=== PATIENT | male | born 1975 | race African-American/Black ===

== ENCOUNTER 2018-04-24 17:49 | Emergency (ER) | payer SELFPAY ==
[~2018-04-24] VITALS: Ht 177.8 cm; Wt 59.0 kg
--- NOTE | 2018-04-24 19:00 | NUR ---
BIB RA 86 GLF + ETOH, LAC ON LT EYE BROW-UNK KO, AMB ON SEEN PER EMS, BS REPORTED 100, VS OBTAINED STABLE, PLACED ON ER BED 6, AWAITING TO BE EVAL BY ER MD.
--- NOTE | 2018-04-24 19:10 | NUR ---
CL FOR POTASSIUM REPORTED 2.7 MD MADE AWARE, AWAITING ORDERS.
[2018-04-24 19:19] LABS: BASOPHILS # (AUTO) 0.2 /CMM (0.0-0.2); EOSINOPHILS % (AUTO) 1.5 % (0.0-6.0); HEMATOCRIT 46 % (39-51); HEMOGLOBIN 15.6 g/dL (13.5-17.5); LYMPHOCYTES # (AUTO) 2.9 /CMM (0.8-4.8); LYMPHOCYTES % (AUTO) 36.6 % (20.0-44.0); MEAN CORPUSCULAR HGB CONC 34 g/dl (31.0-36.0); MEAN CORPUSCULAR VOLUME 95 fL (80-96); MONOCYTES # (AUTO) 0.6 /CMM (0.1-1.30); MONOCYTES % (AUTO) 8.1 % (2.0-12.0); NEUTROPHILS # (AUTO) 4.1 /CMM (1.8-8.9); NEUTROPHILS % (AUTO) 51.8 % (43.0-81.0); PLATELET COUNT (AUTO) 307 /CMM (150-450); WHITE BLOOD COUNT (AUTO) 7.9 K/uL (4.3-11.0)
[2018-04-24 19:29] LABS: ALANINE AMINOTRANSFERASE 136 U/L (12-78); ALBUMIN 3.9 g/dL (3.4-5.0); ALCOHOL, BLOOD 393 mg/dL (0-0); ALKALINE PHOSPHATASE 125 U/L (46-116); ASPARTATE AMINOTRANSFERASE 222 U/L (15-37); BILIRUBIN,DIRECT 0.2 mg/dL (0.0-0.2); BILIRUBIN,TOTAL 0.4 mg/dL (0.2-1.0); CALCIUM, SERUM 9.2 mg/dL (8.5-10.1); CARBON DIOXIDE 30 mmol/L (21-32); CHLORIDE 102 mmol/L (98-107); CREATININE 0.6 mg/dL (0.6-1.3); GLUCOSE 78 mg/dL (74-106); SODIUM SERUM 142 mmol/L (136-145); TOTAL PROTEIN, SERUM 8.1 g/dL (6.4-8.2); UREA NITROGEN, BLOOD 8 mg/dL (7-18)
[2018-04-24 19:32] LABS: ACETAMINOPHEN < 2 ug/ml (10-30); POTASSIUM 2.7 mmol/L (3.5-5.1); SALICYLATE 2.6 mg/dL (2.8-20.0)
--- NOTE | 2018-04-24 19:32 | NUR ---
XR RAY DONE, AWAITINGNON RESULTS.
[2018-04-24] MEDS ORDERED: POTASSIUM CHLORIDE 20 MEQ TAB.PRT.SR PO ONE ×2 (19:59→20:00)
[2018-04-24] MEDS: POTASSIUM CL. PREMIX PERIPHER. 50 ML IV SCH ×4 (20:00→23:00)
[2018-04-24] MEDS ORDERED: IV NS 0.9% 1,000 ML BAG IV ONE (20:00)
--- NOTE | 2018-04-24 20:00 | NUR ---
ORDER TO REPLACE POTASSIUM WITH 10 MEQ IV FOR TOTAL OF 200 ML.
--- NOTE | 2018-04-24 20:12 | NUR ---
CT READ BY ER MD BAH NEGATIVE, PT INFORMED OF RESULT, MD, NO NEED FOR CERVICAL NECK BRACE .
--- NOTE | 2018-04-24 20:12 | NUR ---
PT TAKEN TO CT, VS STABLE.
[2018-04-24] MEDS ORDERED: POTASSIUM CL. PREMIX PERIPHER. 50 ML ONE ×2 (20:15→21:10)
--- NOTE | 2018-04-24 21:00 | NUR ---
PT RESTING IN BED, VS STABLE, ALL NEEDS ATTENDED, FED, WITH NOURISHMENT.
[2018-04-24] MEDS ORDERED: POTASSIUM CL. PREMIX PERIPHER. 100 ML ONE (22:06)
--- NOTE | 2018-04-24 22:51 | NUR ---
PT CONT' ON POTASSIUM SUPPLIMENT IV AT THIS TIME WELL TOLERATED.
[2018-04-24] MEDS ORDERED: IV NS 0.9% 500 ML BAG IV ONE (23:30)
[2018-04-24] MEDS ORDERED: IV NS 0.9% 250 ML BAG IV ONE (23:30)
--- NOTE | 2018-04-25 00:30 | NUR ---
pt cont' kcl, iv infusing, well tolerated, vs stable.
--- NOTE | 2018-04-25 01:11 | NUR ---
Patient discharged to home in stable condition, placement social centers information provided, food and drinks given, told to wait in waiting room for transport. Written and verbal after care instructions given. Patient verbalizes understanding of instruction.
[2018-04-25 01:15] VITALS: BP 139/86
== END 2018-04-25 01:19 | disposition home or self-care (01) ==
LOC: ER 17:54
DX: S01.112A Laceration without foreign body of left eyelid and periocular area, initial encounter (principal); F10.129 Alcohol abuse with intoxication, unspecified; E87.6 Hypokalemia; R41.82 Altered mental status, unspecified; I10 Essential (primary) hypertension; J45.909 Unspecified asthma, uncomplicated; Z59.0 Homelessness; X58.XXXA Exposure to other specified factors, initial encounter; Y93.89 Activity, other specified; Y92.89 Other specified places as the place of occurrence of the external cause; Y99.8 Other external cause status
CPT/HCPCS: 12013; 36415; 70450; 71045; 72125; 80048; 80076; 80307; 80329; 85025; 93005; 96365; 99284; A4606; G0480; J3480 ×3; J7030; J7050 ×2

== ENCOUNTER 2018-05-19 07:45 | Emergency (ER) | payer OTHER ==
[~2018-05-19] VITALS: Ht 177.8 cm; Wt 76.2 kg
[2018-05-19] MEDS ORDERED: LORAZEPAM 1 MG TABLET PO ONE (08:00)
[2018-05-19] MEDS ORDERED: IV NS 0.9% 1,000 ML BAG IV ONE (08:00)
[2018-05-19] MEDS ORDERED: LORAZEPAM 1 MG TABLET ONE (08:14)
[2018-05-19 08:29] LABS: CALCIUM, SERUM 9.7 mg/dL (8.5-10.1); CARBON DIOXIDE 21 mmol/L (21-32); CHLORIDE 98 mmol/L (98-107); CREATININE 0.9 mg/dL (0.6-1.3); GLUCOSE 110 mg/dL (74-106); POTASSIUM 3.6 mmol/L (3.5-5.1); SODIUM SERUM 139 mmol/L (136-145); UREA NITROGEN, BLOOD 13 mg/dL (7-18)
[2018-05-19 08:35] LABS: ALANINE AMINOTRANSFERASE 133 U/L (12-78); ALBUMIN 3.9 g/dL (3.4-5.0); ALCOHOL, BLOOD < 3 mg/dL (0-0); ALKALINE PHOSPHATASE 122 U/L (46-116); ASPARTATE AMINOTRANSFERASE 229 U/L (15-37); BASOPHILS % (AUTO) 0.7 % (0.0-2.0); BILIRUBIN,DIRECT 0.4 mg/dL (0.0-0.2); BILIRUBIN,TOTAL 1.2 mg/dL (0.2-1.0); EOSINOPHILS % (AUTO) 0.6 % (0.0-6.0); HEMATOCRIT 41 % (39-51); HEMOGLOBIN 13.5 g/dL (13.5-17.5); LYMPHOCYTES # (AUTO) 0.6 /CMM (0.8-4.8); LYMPHOCYTES % (AUTO) 11.1 % (20.0-44.0); MEAN CORPUSCULAR HGB CONC 33 g/dl (31.0-36.0); MEAN CORPUSCULAR VOLUME 94 fL (80-96); MONOCYTES # (AUTO) 0.3 /CMM (0.1-1.30); MONOCYTES % (AUTO) 5.7 % (2.0-12.0); NEUTROPHILS # (AUTO) 4.6 /CMM (1.8-8.9); NEUTROPHILS % (AUTO) 81.9 % (43.0-81.0); PLATELET COUNT (AUTO) 110 /CMM (150-450); RED BLOOD CELL COUNT(AUTO) 4.31 MIL/uL (4.5-6.0); TOTAL PROTEIN, SERUM 7.8 g/dL (6.4-8.2); WHITE BLOOD COUNT (AUTO) 5.7 K/uL (4.3-11.0)
--- NOTE | 2018-05-19 08:59 | NUR ---
patient presented to the ER [facility] from [facility] post ictal seizure. On room air, breathing evenly and unlabored. Connected to the monitor and pulse ox. Kept comfortable. Will continue to monitor accordingly. Denies any pain at this time.
--- NOTE | 2018-05-19 09:59 | NUR ---
ALICIA CALLED FOR HOMELESS RESOURCES
--- NOTE | 2018-05-19 10:00 | NUR ---
ANA MARÍA received a call from DAHLIA Diane from ED requesting for consult for homelessness. Pt. is a 42 year old male who was brought in by rescue ambulance from the [facility] for having a seizure. ANA MARÍA met with pt. bedside. Pt. is alert and oriented x 4. Pt. appears disheveled. Pt. states he has been homeless for a year. Pt. had a job and an apartment a year ago. Pt. lost his job and couldn't afford to pay his rent. Pt. drinks 2 bottles of vodka per day. Pt. states he was drinking beer but as of recent he has been drinking vodka. Pt. states he drinks whenever he has some money. Pt. receives [employer] and food stamps monthly. ANA MARÍA encouraged pt. to attend an alcohol treatment program, however pt. declined. Pt. states he did attend an alcohol treatment program at [facility] in [place] years ago. ANA MARÍA offered pt. [facility] placement and explained the location and times of brain picker. Pt. was given the [facility] fdc placement list for [phone]. [facility] Homeless Directory and the following resources: Behavioral Health and Substance Abuse Referrals and Clinics for Screening [facility] [address] [facility] [place] [address] Not a fdc, do not send patients there for shelters. Homeless resources. Appointment is needed. [phone] Homeless mentally ill people may be seen at [facility] on a walk-in basis. [facility] [place] (Behavioral Health) [address] [facility], 2nd floor [place] [address] Main Number: [facility] ([facility]): Contact Antonina Prasad [facility] [address] [address] Walk-in for psychiatric consultation HOURS: Mon-Fri 8am--7pm Saturdays 9am--5:30pm Closed on Sundays Clinic stated that walk-ins are welcome, but there will be a long wait. No appointments. [facility] (Behavioral Health) [facility] Walk-in during certain hours [address] [address] [facility] Services Crisis stabilization, medication support mental health services [address] [address] [facility] [phone] Appointment needed [facility]ing [facility] Appointment needed [address] [facility] [phone] Counseling [place] [address] [facility] [phone] [facility] Homeless Patients [facility] [address], Vaccines and infectious disease resource [address] [place]. [place] Hours: M, T, Th, F 8:30AM-4:30PM Walk-ins allowed Provide medical screening and pharmacy [facility] [address] [facility] [address] [place] [address] Vaccines and infectious diseases Hours M-F 8AM-3:30PM Walk-ins allowed Provide medical screening and pharmacy [facility] [address] [facility] [place] [address] Hours 8AM-4:30PM Walk-ins allowed Provide medical screening and pharmacy Alcohol and Drug Treatment Programs [facility] Substance Abuse Self-helpline ([facility]) Substance Abuse Contact number . Call the hotline and the leveling machine operator will screen and link individual to an appropriate program. Must have Medi-jacquelyn or be Med-jacquelyn eligible. [facility] [address] [place] [address] [facility] [address] [facility] [place] [address] Appointment needed;Intake at 8.00 am but this does not mean acceptance [facility] (Rastafarian based) [address] [place] [address] (Six months program and need to work for 8 hrs per day while in treatment) [facility] (No insurance required) [address] [place] [address] [facility] [address] [address] Closed on Friday [facility] [phone] [address] [facility] [address] Prefer phone calls. They do allow walk-ins but prefer appointments. Pt. was given breakfast, a T-shirt (per request) and a tap card. No other social service needs are requested at this time. SW is available, if needed. Pt's RN has been updated with pt's discharge plan. Homeless Patient Waiver form was signed by the pt. and placed in pt's chart.
--- NOTE | 2018-05-19 10:00 | NUR ---
PATIENT REFUSED UA SAMPLE
--- NOTE | 2018-05-19 10:10 | NUR ---
PATIENT SEEN BY [facility], GAVE A SHIRT AND ORDERED FOOD IN THE KITCHEN.
--- NOTE | 2018-05-19 10:52 | NUR ---
Patient discharged in stable condition. PIV removed. Rx given to patient. Written and verbal after care instructions given. Patient verbalizes understanding of instruction. Tap card provided for transportation.
[2018-05-19 10:53] VITALS: BP 120/80
== END 2018-05-19 10:54 | disposition home or self-care (01) ==
LOC: ER 07:46
DX: F10.239 Alcohol dependence with withdrawal, unspecified (principal); R56.9 Unspecified convulsions; I10 Essential (primary) hypertension; J45.909 Unspecified asthma, uncomplicated; Z59.0 Homelessness; Y90.0 Blood alcohol level of less than 20 mg/100 ml
CPT/HCPCS: 36415; 70450-TC; 71045-TC; 80048-TC; 80076-TC; 85025-TC; G0480; J7030